=== PATIENT | male | born 1995 | race Caucasian/White ===

== ENCOUNTER 2020-07-31 12:19 | Outpatient (REF) | payer BC, SELFPAY ==
[2020-08-01 22:12] LABS: Rubella IgG Antibody 4.75 Index
[2020-08-02 01:42] LABS: Mumps Virus IgG Antibody <9.00 AU/mL
[2020-08-03 04:36] LABS: ~Hepatitis B Surface Antibody NONREACTIVE (Nonreactive)
== END 2020-07-31 12:20 | disposition home or self-care (01) ==
LOC: HO.HMGCLDS 12:19
PROVIDERS: PCP Internal Medicine; Visit Provider Internal Medicine
DX: Z00.00 Encounter for general adult medical examination without abnormal findings (principal)
CPT/HCPCS: 36415; 86706; 86735; 86762; 86765; 86787

== ENCOUNTER 2021-07-19 07:54 | Outpatient (REF) | payer BC, SELFPAY ==
--- NOTE | ~2021-07-19 | XR_ITS ---
EXAMINATION: XR SHOULDER, RIGHT CLINICAL INFORMATION: Pain COMPARISON: None TECHNIQUE: Three views of the right shoulder. FINDINGS: Visualized portion of the proximal right humerus demonstrate no fracture. Humeral head demonstrates good articulation with the glenoid fossa. Acromioclavicular joint is normal in appearance. Visualized right-sided ribs and lung parenchyma are unremarkable. XR/XR shoulder RT min 2V IMPRESSION: Unremarkable radiographs of the right shoulder.
== END 2021-07-19 07:55 | disposition home or self-care (01) ==
LOC: HO.HOSX 07:54
PROVIDERS: Visit Provider Physician Assistant
DX: M25.511 Pain in right shoulder (principal); M75.101 Unspecified rotator cuff tear or rupture of right shoulder, not specified as traumatic; Z87.891 Personal history of nicotine dependence
CPT/HCPCS: 73030

== ENCOUNTER 2021-08-03 19:30 | Outpatient (REF) | payer BC, SELFPAY ==
--- NOTE | ~2021-08-03 | MR_ITS ---
EXAMINATION: MR SHOULDER WITHOUT CONTRAST, RIGHT CLINICAL INFORMATION: Right shoulder pain COMPARISON: Radiographs 07/19/2021 TECHNIQUE: MRI of the shoulder without contrast was performed on a high-field scanner. FINDINGS: ROTATOR CUFF: Small interstitial partial tear of the subscapularis tendon insertion. The rotator cuff is otherwise intact. No muscle atrophy or fatty infiltration. BICEPS: Normal. CORACOACROMIAL ARCH: The undersurface of the acromion is laterally downsloping with no subacromial spur. The acromioclavicular joint is normal. LABRUM/CAPSULE: Normal. GLENOHUMERAL JOINT/MARROW: No joint effusion. Bone marrow signal is normal. MR/MR shoulder RT wo con IMPRESSION: Small interstitial partial tear of the distal subscapularis tendon. Otherwise unremarkable.
== END 2021-08-03 19:31 | disposition home or self-care (01) ==
LOC: HO.MRI 19:30
PROVIDERS: Visit Provider Physician Assistant
DX: M75.101 Unspecified rotator cuff tear or rupture of right shoulder, not specified as traumatic (principal)
CPT/HCPCS: 73221

== ENCOUNTER → 2021-09-20 09:42 | Outpatient (BNVA) | payer BC, OTHER, SELFPAY | PROVIDERS: Visit Provider Physician Assistant | DX: Z13.89 Encounter for screening for other disorder (principal) ==

== ENCOUNTER 2021-10-12 08:00 | Outpatient (RCR) | payer BC, OTHER, SELFPAY ==
--- NOTE | 2021-09-01 08:49 | MHC.PT.EP ---
[facility] [place] Office [place] Office [place] Office [address] Timur Dewey [address] [phone] F: [phone] F: [phone] F: [phone] F: [phone] Physical Therapy Plan of Care Date of Evaluation: Date of Surgery: Diagnosis: This is a 25 yo male presenting to skilled PT with a script for tear in R RTC Assessment: This is a 25 yo male presenting to skilled PT with a script for tear in R RTC. Esau presents today for his right shoulder that started to give him pain beginning last fall 2020. Pain was achy and dull, almost as if I threw my arm out. A few days following he went to push a laundry basket and felt a sharp pain at the posterior aspect of his shoulder. Time did not heal so he went to [facility] ortho where he had an x-ray and MRI (small partial tear of distal subscap tendon on the R). Pain has improved since noticing it but he is hesitant to say this because he avoids using this arm in general. He reports that his pain is located at the posterior aspect of the shoulder. At rest he has no pain however if he attempts to use the arm his pain is sharp. Denies numbness or tingling, radiating symptoms down the arm. Assessment reveals pain that ranges up to a 6/10. He demos hypermobility ROM with rotation and pain with abduction, decreased scapular strength, impaired resting posture with forward head and rounded shoulders, WFL joint mobility as well as gross functional decline with pushing, pulling, lifting. He is an excellent candidate for skilled PT 2x/wk for 5wks (will be coming in 1x/wk due to work schedule). Frequency and Duration: The patient will be seen 2x/wk for 5wks Short Term Goals: I in HEP Demo proper scap retract and depress posture without cues from PT Fdc Goals: Demo 5/5 scapular and shoulder strength Return to body weight push ups without pain Improve pain to no more than a 1/10 at the worst Improve SPADI by 10 points Treatment Plan: Modalities to reduce pain, spasms and effusion. Manual therapy to restore motion and function. Therapeutic exercise to improve strength and flexibility. Neuromuscular re-education for posture and balance. Therapeutic activities to return to functional activities of daily living. Electronically signed by: Nguyen Munguia PT Please sign and return to therapist. Thank you for your referral.
--- NOTE | 2021-11-10 15:34 | MHC.PT.DC ---
[facility] [place] Office [place] Office [place] Office [address] Timur Dewey [address] [phone] F: [phone] F: [phone] F: [phone] F: [phone] Physical Therapy Discharge Report Diagnosis: This is a 25 yo male presenting to skilled PT with a script for tear in R RTC Date of Surgery: Date of Evaluation: 09/01/21 Date of Discharge: 11/10/21 Treatments to Date: 5 Cancellations to Date: 0 No Shows to Date: 0 Discharge Status: Achieved Goals Improved Function Independent with HEP Patient Elected to Stop Discharge Summary: Esau was progressed with body weight exercises, diagonal patterns and weights. He handled this all well but was fatigued and reports that he feels the weakness throughout the shoulder as the session progressed. Next session we were planning to try a similar program followed by a lift test in the future however patient saw ortho and is ready for DC at this time. He has not had pain since the eval, has an HEP to continue on is own and understands how to progress it. He demos WFL MMT and ROM. DC to HEP at this time. Electronically signed by: Nguyen Munguia PT Please sign and return to therapist. Thank you for your referral.
== END 2021-11-10 15:34 | disposition home or self-care (01) ==
LOC: HO.PTCHIC 08:00
PROVIDERS: PCP Internal Medicine; Visit Provider Physician Assistant
DX: M75.121 Complete rotator cuff tear or rupture of right shoulder, not specified as traumatic (principal)
CPT/HCPCS: 97110; 97161

== ENCOUNTER → 2021-11-01 09:47 | Outpatient (BNVA) | payer BC, OTHER, SELFPAY | PROVIDERS: Visit Provider Physician Assistant | DX: M75.101 Unspecified rotator cuff tear or rupture of right shoulder, not specified as traumatic (principal) ==